=== PATIENT | male | born 1960 | race Caucasian/White ===

== ENCOUNTER → 2021-12-19 | Outpatient (CLI) | payer BC, OTHER ==
--- NOTE | 2021-12-19 10:50 | MR ---
EXAMINATION TYPE: MR knee LT wo con DATE OF EXAM: 12/19/2021 COMPARISON: None HISTORY: PAIN IN LEFT KNEE, OSTEOARTHRITIS TECHNIQUE: Multiplanar, multisequence imaging of the left knee is performed without IV contrast. FINDINGS: There is a popliteal fossa cyst measuring 1.4 x 0.7 x 4.5 cm. There is narrowing of the medial compartment joint space and patellofemoral compartments most marked changes seen involving the medial compartment. There is grade IV chondromalacia of the articular cart ilage of the medial compartment adjacent reactive marrow edema. There is fibrillation of the patellar cartilage with grade III chondromalacia involving the lateral patellar facet also noted. There is slight change in the caliber of the thickness of the PCL with no definite evidence to sugges t tear. Anterior cruciate ligament and medial collateral and lateral collateral ligaments are grossly intact. There is diffuse abnormal signal involving the posterior horn body and anterior horn of the medial me niscus compatible with tear. Lateral meniscus intact. Patellar and quadriceps tendons intact and there is a small amount of fluid in the suprapatellar burs a. Linear area of abnormal signal medially can be associated with medial plica syndrome. There is increased fluid surrounding semimembranosus and popliteus tendons correlate for tendinosis. Small ganglion cyst adjacent popliteus tendon not excluded measuring 1 cm. IMPRESSION: 1. Severe osteoarthritis of the medial compartment of the knee joint with reactive marrow changes and grade IV chondromalacia. 2. Diffuse abnormal signal throughout the anterior horn, body and posterior horn of the medial menisc us compatible with degenerative tear. 3. Correlate for medial plica syndrome. 4. Popliteal fossa cyst measuring 1.4 x 0.7 x 4.5 cm. 5. 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 6. Semimembranosus and popliteus tendinosis.
== END | disposition home or self-care (01) ==
LOC: RADMRIMAIN 09:09
PROVIDERS: ATTEND Orthopaedic Surgery
DX: M17.12 Unilateral primary osteoarthritis, left knee (principal); M71.22 Synovial cyst of popliteal space [Baker], left knee

== ENCOUNTER 2022-09-29 08:23 | Day surgery (SDC) | payer BC ==
[2022-09-25 13:18] VITALS: BMI 29.9
[~2022-09-29 08:23] MED LIST: LACTATED RINGERS 1,000 ML IV SCH; LIDOCAINE 1% (10MG/ML) FOR IV START INTRADERMA PRN
[2022-09-29 09:02] VITALS: RESP 18; TEMP 97.9
[2022-09-29] MEDS ORDERED: PROPOFOL 10 MG/ML 20 ML VIAL IV ONE (09:44)
--- NOTE | 2022-09-29 09:58 | P.PCN ---
Date of Procedure: 09/29/22 Procedure(s) Performed: BRIEF HISTORY: Patient is a 61-year-old pleasant male scheduled for an elective colonoscopy as a part of screening for colon cancer. His last colonoscopy was 10 years ago PROCEDURE PERFORMED: Colonoscopy. PREOPERATIVE DIAGNOSIS: Screening for colon cancer. IV sedation per Anesthesia. PROCEDURE: After informed consent was obtained, the patient, was brought into the endoscopy unit. IV sedation was administered by Anesthesia under continuous monitoring. Digital rectal examination was normal. Initially the Olympus CF-160 flexible video colonoscope was then inserted in the rectum, gradually advanced into the cecum without any difficulty. Careful examination was performed as the scope was gradually being withdrawn. Ileocecal valve and the appendiceal orifice were visualized and appeared normal. Prep was excellent. Mucosa of the cecum, ascending colon, transverse colon, descending colon, sigmoid colon, and rectum appeared normal. Scattered sigmoid diverticulosis. Retroflexion was performed in the rectum and monitor hemorrhoids were seen. The patient tolerated the procedure well. IMPRESSION: Normal-appearing colon from rectum to cecum with no evidence of colorectal neoplasia Scattered sigmoid diverticulosis and small internal hemorrhoids RECOMMENDATIONS: Findings of this examination were discussed with the patient as well as his family. He was advised to have a repeat screening colonoscopy in 10 years.
[2022-09-29 10:02] VITALS: BP 106/75
[2022-09-29 10:20] VITALS: PULSE 77
== END 2022-09-29 10:35 | disposition home or self-care (01) ==
LOC: ORWHC2ENDO 08:23
PROVIDERS: ATTEND Internal Medicine Gastroenterology
DX: Z12.11 Encounter for screening for malignant neoplasm of colon (principal); K57.30 Diverticulosis of large intestine without perforation or abscess without bleeding; K64.8 Other hemorrhoids; I10 Essential (primary) hypertension; E78.5 Hyperlipidemia, unspecified; K21.9 Gastro-esophageal reflux disease without esophagitis; Z79.899 Other long term (current) drug therapy; Z98.890 Other specified postprocedural states
CPT/HCPCS: 45378; J2704

== ENCOUNTER → 2023-04-05 | Outpatient (CLI) | payer BC ==
--- NOTE | 2023-04-06 12:41 | CT ---
EXAMINATION TYPE: CT brain wo con CT DLP: 1012.70 mGycm, Automated exposure control for dose reduction was used. DATE OF EXAM: 04/05/2023 10:54 AM COMPARISON: None. CLINICAL INDICATION:Male, 62 years old with history of R51.9 HEADACHE, UNSPECIFIED, Headache, unspeci fied TECHNIQUE: Brain: Axial CT images of the brain were obtained with coronal and sagittal reformats created and rev iewed. Contrast used: None. Oral contrast used: None. FINDINGS: Extra-axial spaces: No abnormal extra-axial fluid collections. Ventricular system: Within normal limits. Cerebral parenchyma: No increased attenuation to suggest acute intraparenchymal hemorrhage. The gra y-white matter interface appears maintained. No significant atrophy. White matter unremarkable by C T. Cerebellum: No acute abnormality. Mass effect: No evidence of mass effect or midline shift. Intracranial vasculature: Unremarkable Soft tissues: Normal. Visualized orbits: Orbital contents appear grossly intact. Calvarium/osseous structures: No evidence of calvarial fracture. Paranasal sinuses and mastoid air cells: Paranasal sinuses are clear. There is partial chronic sclero sis of some of the left mastoid air cells without an acute abnormality. MRI is more sensitive for detecting acute processes such as infarct, and may be considered if clinica lly warranted. IMPRESSION: No acute intracranial CT abnormality.
== END | disposition home or self-care (01) ==
LOC: RADCTMAIN 10:38
PROVIDERS: ATTEND Family Medicine
DX: R51.9 Headache, unspecified (principal)
CPT/HCPCS: 70450